=== PATIENT | female | born 1980 | race Caucasian/White ===

== ENCOUNTER 2023-03-30 22:44 | Observation (INO) | payer OTHER ==
[~2023-03-30] VITALS: Ht 160 cm; Wt 60.7 kg
[2023-03-30] MEDS: GABAPENTIN 300 MG CAP PO SCH (04:56)
[~2023-03-30 22:44] MED LIST: ADDE15TA PO; CLAR2.5T PO; CLON1TAB PO; ESCITALOPRAM OXALATE 10 MG TAB (LEXAPRO) PO SCH; ESTROGEN PO; KLON1TAB PO; MAGN400T PO; MICR10CA PO; MIRTAZAPINE 7.5MG PER 1/2 TABLET PO SCH; SERO200T PO; SERT-138 PO; rOPINIRole 2MG TAB PO SCH
[2023-03-30] MEDS ORDERED: PROMETHAZINE 25MG/ML 1ML VIAL IV ONE (23:00)
[2023-03-30] MEDS ORDERED: MORPHINE 4 MG/ML 1ML VIAL IV ONE (23:00)
[2023-03-30] MEDS ORDERED: NS 1,000 ML IV ONE ×2 (23:00→23:50)
[2023-03-30 23:30] LABS: BASO % 0.3 % (0.0-1.0); EOS # 0.1 10^3/uL (0.0-0.5); EOS % 0.7 % (0.0-3.0); HEMATOCRIT 36.4 % (36.0-47.0); HEMOGLOBIN 11.9 g/dl (12.0-15.5); LYMPH # 3.5 10^3/uL (1.5-5.0); LYMPH % 28.6 % (24.0-44.0); MEAN CORPUSCULAR HEMOGLOBIN 31.2 pg (27.0-33.0); MEAN CORPUSCULAR HGB CONC 32.7 g/dl (32.0-36.5); MEAN CORPUSCULAR VOLUME 95.5 fl (80.0-96.0); MONO # 0.8 10^3/uL (0.0-0.8); MONO % 6.5 % (2.0-8.0); NEUTROPHILS # 7.7 10^3/uL (1.5-8.5); NEUTROPHILS % 63.6 % (36.0-66.0); PLATELET COUNT, AUTOMATED 257 10^3/uL (150-450); RED BLOOD COUNT 3.81 10^6/uL (4.00-5.40); WHITE BLOOD COUNT 12.1 10^3/uL (4.0-10.0)
[2023-03-30 23:35] LABS: CK-MB VALUE MASS < 1.0 NG/ML (<3.6)
[2023-03-30 23:37] LABS: ALBUMIN 4.8 G/DL (3.2-5.2); ALKALINE PHOSPHATASE 257 U/L (46-116); ALT/SGPT 94 U/L (7.0-40); AST/SGOT 53 U/L (<34); BILIRUBIN,TOTAL 3.1 MG/DL (0.3-1.2); BLOOD UREA NITROGEN 32 MG/DL (9-23); CALCIUM LEVEL 9.2 MG/DL (8.5-10.1); CARBON DIOXIDE LEVEL 25 MMOL/L (20-31); CHLORIDE LEVEL 97 MMOL/L (98-107); CREATININE FOR GFR 2.53 MG/DL (0.55-1.30); GLOMERULAR FILTRATION RATE 22.1 (>58); GLUCOSE, FASTING 102 MG/DL (60-100); MAGNESIUM LEVEL 1.4 MG/DL (1.8-2.4); POTASSIUM SERUM 3.8 MMOL/L (3.5-5.1); SODIUM LEVEL 137 MMOL/L (136-145); TOTAL PROTEIN 8.3 G/DL (5.7-8.2)
[2023-03-30 23:39] LABS: CPK CREATINE PHOSPHOKINASE 46 U/L (34-145); MB/CK RELATIVE INDEX 2.17 (< OR =4)
[2023-03-30] MEDS ORDERED: MAG SULF 1GM/100ML (MAG RUN) 1 GM in IV 1 EA IV ONE (23:50)
[2023-03-31] VITALS (7 sets, daily range): BP systolic 80–100; BP diastolic 50–64; TEMP 96.8–97.5; O2SAT 98–99
[2023-03-31] MEDS ORDERED: ONDANSETRON 4MG 2ML VIAL IV PRN (01:15)
[2023-03-31 01:44] LABS: LIPASE 105 U/L (12-53)
[2023-03-31] MEDS ORDERED: CIPROFLOXACIN 200 MG in IV 1 EA IV SCH (02:00)
[2023-03-31] MEDS: NS 1,000 ML IV SCH ×2 (02:00→11:26)
[2023-03-31] MEDS ORDERED: CIPROFLOXACIN 400 MG in IV 1 EA IV SCH (02:00)
[2023-03-31] MEDS ORDERED: ROPI2TAB3 PO (02:13)
[2023-03-31] MEDS ORDERED: LOPE1CAP5 PO (02:13)
[2023-03-31] MEDS ORDERED: ONDA4INJ4 IM (02:13)
[2023-03-31] MEDS ORDERED: CREO12CA PO (02:13)
[2023-03-31] MEDS ORDERED: CODE30TA PO (02:13)
[2023-03-31] MEDS ORDERED: [UNRECOGNIZED DRUG - CODE] SC (02:13)
[2023-03-31] MEDS ORDERED: CYCL5TAB PO ×2 (02:13)
[2023-03-31] MEDS ORDERED: DICY10CA13 PO (02:13)
[2023-03-31] MEDS ORDERED: MIRT1TAB PO (02:13)
[2023-03-31] MEDS ORDERED: GABA-282 PO (02:13)
[2023-03-31] MEDS ORDERED: LOMO2.5T PO (02:13)
[2023-03-31] MEDS ORDERED: ZOLP10TA2 PO (02:13)
[2023-03-31] MEDS ORDERED: LEXA1TAB2 PO (02:13)
[2023-03-31] MEDS ORDERED: HYDR-4517 PO (02:13)
[2023-03-31] MEDS ORDERED: MIDO5TA PO (02:13)
[2023-03-31] MEDS ORDERED: PANT-23 PO (02:13)
[2023-03-31] MEDS ORDERED: HOME MED LIST COMPLETE! XX SCH (02:15)
[2023-03-31 02:43] LABS: RSV AMPLIFICATION NEGATIVE (NEGATIVE)
[2023-03-31] MEDS ORDERED: metroNIDAZOLE 500 MG in IV 1 EA IV SCH (03:00)
[2023-03-31] MEDS ORDERED: MAG SULF 1GM/100ML (MAG RUN) 1 GM in IV 1 EA IV ONE (03:00)
[2023-03-31] MEDS ORDERED: NS 500 ML IV ONE (03:05)
[2023-03-31] MEDS ORDERED: NORCO, ANEXSIA 5/325MG TABLET (HYDROcodone/ACETAMINOPHEN) PO PRN (03:05)
[2023-03-31] MEDS ORDERED: MORPHINE 2 MG/ML 1ML VIAL IV PRN (04:50)
[2023-03-31] MEDS: PIPERACILLIN/TAZOBACTAM SOD 2.25 GM in D5W MINI-BAG PLUS 50 ML IV SCH ×2 (05:26→10:34)
[2023-03-31] MEDS: MIDODRINE 5 MG TAB PO SCH ×2 (05:31→11:26)
[2023-03-31 06:53] LABS: ALBUMIN 3.4 G/DL (3.2-5.2); BILIRUBIN,TOTAL 2.2 MG/DL (0.3-1.2); CALCIUM LEVEL 8.1 MG/DL (8.5-10.1); CREATININE FOR GFR 1.68 MG/DL (0.55-1.30); GLOMERULAR FILTRATION RATE 35.4 (>58); MAGNESIUM LEVEL 2.6 MG/DL (1.8-2.4); POTASSIUM SERUM 3.4 MMOL/L (3.5-5.1)
[2023-03-31 07:26] LABS: BASO % 0.3 % (0.0-1.0); EOS # 0.1 10^3/uL (0.0-0.5); EOS % 0.9 % (0.0-3.0); HEMATOCRIT 28.1 % (36.0-47.0); LYMPH % 29.1 % (24.0-44.0); MEAN CORPUSCULAR HEMOGLOBIN 30.9 pg (27.0-33.0); MEAN CORPUSCULAR HGB CONC 31.7 g/dl (32.0-36.5); MEAN CORPUSCULAR VOLUME 97.6 fl (80.0-96.0); MONO # 0.4 10^3/uL (0.0-0.8); MONO % 6.4 % (2.0-8.0); NEUTROPHILS # 4.3 10^3/uL (1.5-8.5); PLATELET COUNT, AUTOMATED 163 10^3/uL (150-450); RED BLOOD COUNT 2.88 10^6/uL (4.00-5.40); WHITE BLOOD COUNT 6.9 10^3/uL (4.0-10.0)
[2023-03-31 07:42] LABS: HEMOGLOBIN 8.9 g/dl (12.0-15.5)
[2023-03-31] MEDS ORDERED: MIDODRINE 5 MG TAB PO SCH (08:00)
[2023-03-31] MEDS: GABAPENTIN 300 MG CAP PO SCH (08:18)
[2023-03-31] MEDS ORDERED: BUDESONIDE EC 3MG CAP (ENTOCORT EC) PO SCH (09:00)
[2023-03-31] MEDS ORDERED: NS 1,000 ML IV ONE ×2 (09:05→09:30)
[2023-03-31] MEDS ORDERED: BUDE3CAP5 PO (11:29)
[2023-03-31 13:03] LABS: CALCIUM LEVEL 7.5 MG/DL (8.5-10.1); CREATININE FOR GFR 1.46 MG/DL (0.55-1.30); GLOMERULAR FILTRATION RATE 41.6 (>58); POTASSIUM SERUM 3.6 MMOL/L (3.5-5.1)
== END 2023-03-31 14:46 | disposition home or self-care (01) ==
LOC: M ED 22:44 → M ED INP 22:45 → UNDOADMOB 03-31 01:11 → M ED INP 03-31 01:11 → INTOOBSV 03-31 01:11 → M MSPAV 03-31 04:15 → M ED INP 03-31 04:15 → UNDODISOB 03-31 14:46
PROVIDERS: ADMIT Internal Medicine; ATTEND Internal Medicine
DX: K50.919 Crohn's disease, unspecified, with unspecified complications (principal); E86.0 Dehydration; R55 Syncope and collapse; N17.9 Acute kidney failure, unspecified; K21.9 Gastro-esophageal reflux disease without esophagitis; I95.9 Hypotension, unspecified; D64.9 Anemia, unspecified; E83.42 Hypomagnesemia; R74.01 Elevation of levels of liver transaminase levels; Z79.899 Other long term (current) drug therapy; Z88.1 Allergy status to other antibiotic agents; Z88.5 Allergy status to narcotic agent
CPT/HCPCS: 36415; 74176; 80048; 80053; 82550; 82553; 83605; 83690; 83735; 84484; 85025; 87507; 87631; 93005; 96361; 96365; 96366; 96375; 96376; 99285; J2543; J2550; J3475